=== PATIENT | male | born 1975 | race Caucasian/White ===

== ENCOUNTER → 2017-11-10 10:03 | Outpatient (CLI) | payer BC, SELFPAY ==
--- NOTE | 2017-11-10 10:08 | XR_ITS ---
XR chest 2V HISTORY: Chest pain and leg swelling ITS.REASON: CHF ORDERING PHYSICIAN: Adriana Neil PATIENT AGE: 41 years COMPARISON: None FINDINGS: The cardiomediastinal silhouette and pulmonary vascularity are within normal limits. The lungs are clear without infiltrates, suspicious nodules, or pleural effusions. No acute bony abnormalities. IMPRESSION: Negative chest, no acute finding No radiographic evidence of congestive heart failure
== END ==
PROVIDERS: PCP Family Medicine; Visit Provider Nurse Practitioner Family
DX: I50.9 Heart failure, unspecified (principal)
CPT/HCPCS: 71046; 93005

== ENCOUNTER → 2017-11-11 08:03 | Outpatient (CLI) | payer BC, SELFPAY ==
[2017-11-11 09:12] LABS: Alanine Aminotransferase 38 U/L (12-78); Albumin Level 3.5 gm/dL (3.4-5.0); Albumin/Globulin Ratio 1.1 (1.1-1.8); Alkaline Phosphatase 56 U/L (46-116); Anion Gap 11.6 mEq/L (5-15); Aspartate Amino Transferase 16 U/L (15-37); Bilirubin,Total 0.3 mg/dL (0.2-1.0); Blood Urea Nitrogen 16 mg/dL (7-18); Calcium 8.9 mg/dL (8.5-10.1); Carbon Dioxide 30 mmol/L (21.0-32.0); Chloride 105 mmol/L (98-107); Chol/HDL Ratio 5.3 (1-3.5); Cholesterol 226 mg/dL (140-200); Creatinine,Serum 0.96 mg/dL (0.70-1.30); Estimated Glomerular Filt Rate 86 ml/min (>60); GFR (African American) 104 ML/MIN (>60); Globulin 3.2 gm/dl (1.3-3.2); Glucose 104 mg/dL (74-106); HDL Cholesterol 43 mg/dL (27-67); LDL Cholesterol 160 mg/dL (0-130); Potassium 4.6 mmoL/L (3.5-5.1); Sodium 142 mmol/L (136-145); Total Protein,Serum 6.7 gm/dL (6.4-8.2); Triglycerides 113 mg/dL (30-200); VLDL Cholesterol 23 mg/dL (0-40)
[2017-11-11 12:40] LABS: Hemoglobin A1C 5.7 % (0.0-7.0)
== END ==
PROVIDERS: Visit Provider Nurse Practitioner Family
DX: I50.9 Heart failure, unspecified (principal); Z13.220 Encounter for screening for lipoid disorders; Z13.1 Encounter for screening for diabetes mellitus
CPT/HCPCS: 36415; 80053; 80061; 83036

== ENCOUNTER → 2020-03-29 12:21 | Outpatient (CLI) | payer BC, SELFPAY ==
[2020-03-29 13:31] LABS: Basophils # 0.1 K/mm3 (0-0.2); Basophils % 0.8 % (0.1-2.0); Eosinophils # 0.2 K/mm3 (0.0-0.4); Eosinophils % 2.9 % (0.1-12.0); Hemoglobin 15.7 g/dL (14.1-18.0); Lymphocytes # 2.8 K/mm3 (0.7-4.5); Mean Corpuscular HGB Conc 34.1 g/dL (31.8-35.4); Mean Corpuscular Hemoglobin 30.7 pg (27.0-31.2); Mean Corpuscular Volume 90.2 fl (80-94); Mean Platelet Volume 8.1 fl (7.4-10.4); Monocytes # 0.5 K/mm3 (0.1-1.0); Monocytes % 6.5 % (1.7-9.3); Neutrophils # 3.8 K/mm3 (1.8-7.8); Neutrophils % 51.9 % (37.0-80.0); Platelet Count 232 K/mm3 (142-424); White Blood Count 7.3 K/mm3 (4.8-10.8)
[2020-03-30 14:33] LABS: Covid-19 Nasal PCR Sendout Lex NOT DETECTED
== END ==
PROVIDERS: PCP Family Medicine; Visit Provider Family Medicine
DX: Z03.818 Encounter for observation for suspected exposure to other biological agents ruled out (principal)
CPT/HCPCS: 36415; 85025; U0004

== ENCOUNTER → 2021-02-03 11:21 | Outpatient (CLI) | payer BC, SELFPAY ==
[2021-02-03 12:10] LABS: Adenovirus,PCR Not Detected (NotDetected); Bordetella Pertussis Not Detected (NotDetected); Chlamydophila Pneumoniae, PCR Not Detected (NotDetected); Coronavirus 229E Not Detected (NotDetected); Coronavirus NL63 Not Detected (NotDetected); Coronavirus OC43 Not Detected (NotDetected); Coronovirus HKU1,PCR Not Detected (NotDetected); Human Metapneumovirus Not Detected (NotDetected); Influenza A, PCR Not Detected (NotDetected); Influenza AH1, 2009 Not Detected (NotDetected); Influenza AH1, PCR Not Detected (NotDetected); Influenza AH3,PCR Not Detected (NotDetected); Influenza B, PCR Not Detected (NotDetected); Mycoplasma Pneumoniae, PCR Not Detected (NotDetected); Parainfluenza 1, PCR Not Detected (NotDetected); Parainfluenza 2, PCR Not Detected (NotDetected); Parainfluenza 3, PCR Not Detected (NotDetected); Parainfluenza 4, PCR Not Detected (NotDetected); Respiratory Syncytial Virus Not Detected (NotDetected); Rhinovirus/Enterovirus Not Detected (NotDetected)
[2021-02-03 12:23] LABS: Basophils % 0.9 % (0.1-2.0); Eosinophils # 0.1 K/mm3 (0.0-0.4); Eosinophils % 2.8 % (0.1-12.0); Hematocrit 43.9 % (42.0-52.0); Hemoglobin 14.4 g/dL (14.1-18.0); Lymphocytes # 1.4 K/mm3 (0.7-4.5); Lymphocytes % 29.9 % (10-50); Mean Corpuscular HGB Conc 32.9 g/dL (31.8-35.4); Mean Corpuscular Volume 91.1 fl (80-94); Mean Platelet Volume 7.8 fl (7.4-10.4); Monocytes # 0.5 K/mm3 (0.1-1.0); Monocytes % 11.1 % (1.7-9.3); Neutrophils # 2.6 K/mm3 (1.8-7.8); Neutrophils % 55.2 % (37.0-80.0); Platelet Count 200 K/mm3 (142-424); Red Blood Count 4.82 M/mm3 (4.60-6.20); Red Cell Distribution Width 12.8 % (11.5-17.5); White Blood Count 4.7 K/mm3 (4.8-10.8)
[2021-02-03 14:02] LABS: Coronavirus 19, PCR Detected (NotDetected)
== END ==
PROVIDERS: PCP Nurse Practitioner Family; Visit Provider Nurse Practitioner Family
DX: Z20.822 Contact with and (suspected) exposure to COVID-19 (principal); U07.1 COVID-19
CPT/HCPCS: 36415; 85025; 87581; 87632; 87798; C9803; U0003; U0005

== ENCOUNTER 2022-01-29 16:50 | Observation (INO) | payer BC, SELFPAY ==
[2022-01-29] VITALS (9 sets, daily range): BP systolic 110–138; BP diastolic 72–87; PULSE 50–74; RESP 16–18; TEMP 36.6–36.7; O2SAT 97–99; BMI 39.9; BMI 39.7
--- NOTE | 2022-01-29 16:50 | ECG_ITS ---
APPROVED REPORT Exam: Resting ECG HR:69 bpm ECG Measurements Heart Rate 69 AXES IA 149 P 21 QRSd 91 QRS 24 QT 383 T 17 QTc 402 Conclusion SINUS RHYTHM NORMAL ECG UNCONFIRMED REPORT Electronically signed by : Jamie Mckeon MD 01/31/2022 09:54:30
--- NOTE | 2022-01-29 16:54 | XR_ITS ---
PROCEDURE INFORMATION: Exam: XR Chest Exam date and time: 01/29/2022 5:08 PM Age: 46 years old Clinical indication: Pain; Chest pressure; Additional info: Chest pain TECHNIQUE: Imaging protocol: Radiologic exam of the chest. Views: 1 view. COMPARISON: CR CXR2V XR chest 2V 11/10/2017 10:09 AM FINDINGS: Lungs: Unremarkable. No consolidation. Pleural spaces: Unremarkable. No pleural effusion. No pneumothorax. Heart/Mediastinum: Unremarkable. No cardiomegaly. Bones/joints: Unremarkable. IMPRESSION: No acute findings.
--- NOTE | 2022-01-29 17:06 | HMH.EDGENADL ---
Discharge Plan Disposition Patient Disposition: Admitted as Observation Condition: Good Clinical Impressions Clinical Impression: Pulmonary emboli Discharge ED Provider: Joey Bonilla General Adult HPI General Chief complaint: Chest Pain Stated complaint: Chest Pain Time Seen by Provider: 01/29/22 17:19 History of Present Illness HPI narrative: Patient states that he was walking to get his mail today when he got a sudden sharp stabbing pain in his right shoulder blade whenever he takes a deep breath. He feels short of breath. States his left arm also felt a little bit funny. No recent illness, no recent cough, no hemoptysis, no fever. No leg pain. He has chronic swelling of his legs which is unchanged. No recent hospitalizations, surgery, travel. He has no known cardiac disease or pulmonary disease. He is a former smoker. States that a few days ago he had a brief episode of chest tightness lasting only a few minutes. Related Data Home Medications Medication Instructions Recorded Confirmed No Known Home Medications 01/29/22 01/29/22 Allergies Allergy/AdvReac Type Severity Reaction Status Date / Time No Known Allergies Allergy Verified 08/28/18 20:00 [facility] Social History Smoking Status: Never smoker alcohol intake: never current occupational status: other Travel in the last 8 weeks: None ROS Obtained: Yes Systems reviewed as appropriate & no additional complaints except as documented Constitutional Constitutional: Reports system reviewed and no additional complaints, except as documented, Denies fever(s), Denies headache(s) and Denies weakness ENT Ears, Nose, Mouth, and Throat: Denies headache(s), Denies nasal discharge and Denies sore throat Cardiovascular Cardiovascular: Reports chest pain and Reports leg edema (Chronic) Respiratory Respiratory: Reports shortness of breath, Denies cough, Denies hemoptysis and Reports pain with breathing Gastrointestinal Gastrointestingal: Denies abdominal pain, constipation, diarrhea or vomiting Genitourinary Male Genitourinary: Denies difficulty urinating and Denies flank pain Musculoskeletal Musculoskeletal: Denies numbness Neurologic Neurologic: Denies headache(s), Denies numbness and Denies weakness Physical Exam General General appearance: alert and in no apparent distress Head Head exam: atraumatic and normocephalic Eye Eye exam: Present normal appearance and EOMI ENT ENT exam: Present mucous membranes moist Neck Neck exam: Present normal inspection and trachea midline Chest Chest inspection: Present normal inspection and symmetric chest wall rise Respiratory Respiratory exam: Present normal lung sounds bilaterally; Absent respiratory distress Cardiovascular Cardiovascular exam: Present regular rate, normal rhythm and normal heart sounds Abdominal Exam Abdominal exam: Present soft and normal bowel sounds; Absent distention, tenderness, guarding, rebound or rigidity Extremities Exam Extremities exam: Absent edema or calf tenderness Neurological Exam Neurological exam: Present alert and oriented X3 Psychiatric Psychiatric exam: Present normal affect and normal mood Skin Skin exam: Present warm and dry Medical Decision Making Elver Inquiry Pt receiving controlled substance: No Vital Signs: 01/29/22 16:52 01/29/22 17:00 01/29/22 17:31 Temperature 98.1 F Temperature Source Oral Pulse Rate 73 62 Pulse Rate [Radial] 74 Respiratory Rate 16 18 16 Blood Pressure 110/82 116/73 Blood Pressure [Right Arm] 122/85 Blood Pressure Mean 91 81 Blood Pressure Mean [Right Arm] 97 Blood Pressure Position [Right Arm] Sitting 02 Sat by Pulse Oximetry 98 97 98 Oxygen Delivery Method Room Air 01/29/22 18:31 01/29/22 19:24 01/29/22 20:01 Temperature Temperature Source Pulse Rate 67 71 60 Pulse Rate [Radial] Respiratory Rate 18 18 17 Blood Pressure 118/72 131/87 138/79 Blood Pressure [Right Arm] Bloo
--- NOTE | 2022-01-29 17:26 | CT_ITS ---
PROCEDURE INFORMATION: Exam: CTA Chest With Contrast Exam date and time: 01/29/2022 5:55 PM Age: 46 years old Clinical indication: Pain; Right-sided; Additional info: Pleuritic cp right side with inspiration. TECHNIQUE: Imaging protocol: Computed tomographic angiography of the chest with contrast. 3D rendering (Not supervised by radiologist): MIP and/or 3D reconstructed images were created by the technologist. Radiation optimization: All CT scans at this facility use at least one of these dose optimization techniques: automated exposure control; mA and/or kV adjustment per patient size (includes targeted exams where dose is matched to clinical indication); or iterative reconstruction. Contrast material: ISOVUE; Contrast volume: 70 ml; Contrast route: INTRAVENOUS (IV); COMPARISON: CR XR CHEST PORTABLE 01/29/2022 5:08 PM FINDINGS: Pulmonary arteries: A filling defect is present within the pulmonary artery to the right lower lobe (series 1001, image 51) consistent with pulmonary embolism. A filling defect is also present within the pulmonary artery to the left lower lobe (series 1001, image 54). Bilateral pulmonary emboli. Aorta: No evidence of aortic dissection. Lungs: Atelectatic changes noted within both lung bases. No focal pneumonia or pneumothorax. Pleural spaces: There are no pleural effusions present. Heart: No evidence of right heart strain. Lymph nodes: Unremarkable. No enlarged lymph nodes. Bones/joints: The thoracic spine demonstrates mild degenerative changes at multiple levels. Soft tissues: Unremarkable. IMPRESSION: 1. Bilateral pulmonary emboli. 2. No evidence of right heart strain. 3. No evidence of aortic dissection. 4. Atelectatic changes noted within both lung bases. 5. No focal pneumonia or pneumothorax.
[2022-01-29 17:38] LABS: Chloride 106 mmol/L (98-107); Sodium 140 mmol/L (136-145)
--- NOTE | 2022-01-29 17:39 | PC.NURSE ---
chris CR checked on pt no needs
[2022-01-29 17:41] LABS: Blood Urea Nitrogen 15 mg/dl (9-20); Calcium 8.7 mg/dl (8.4-10.2); Carbon Dioxide 27 mmol/L (22.0-30.0); Creatinine Clearance Estimated 211 mL/min (50-200); Estimated Glomerular Filt Rate 91 ml/min (>60); GFR (African American) 110 ML/MIN (>60); Glucose 85 mg/dl (74-100)
--- NOTE | 2022-01-29 17:41 | PC.NURSE ---
rounded on pt, pt family at BS, pt resting in bed, states no needs at this time. call light hooked on bedrail in reach of pt. will continue to monitor
[2022-01-29 17:47] LABS: Basophils # 0.2 K/mm3 (0-0.2); Basophils % 1.7 % (0.1-2.0); Eosinophils # 0.2 K/mm3 (0.0-0.4); Eosinophils % 2.4 % (0.1-12.0); Hematocrit 45.1 % (42.0-52.0); Hemoglobin 14.7 g/dL (14.1-18.0); Lymphocytes # 2.9 K/mm3 (0.7-4.5); Lymphocytes % 30.9 % (10-50); Mean Corpuscular HGB Conc 32.7 g/dL (31.8-35.4); Mean Corpuscular Hemoglobin 29.6 pg (27.0-31.2); Mean Corpuscular Volume 90.5 fl (80-94); Mean Platelet Volume 8.1 fl (7.4-10.4); Monocytes # 0.7 K/mm3 (0.1-1.0); Monocytes % 7.7 % (1.7-9.3); Neutrophils # 5.3 K/mm3 (1.8-7.8); Neutrophils % 57.4 % (37.0-80.0); Platelet Count 257 K/mm3 (142-424); Red Blood Count 4.98 M/mm3 (4.60-6.20); Red Cell Distribution Width 13.2 % (11.5-17.5); White Blood Count 9.2 K/mm3 (4.8-10.8)
[2022-01-29 17:59] LABS: Troponin I < 0.01 ng/ml (0.00-0.034)
--- NOTE | 2022-01-29 18:19 | PC.NURSE ---
dr nirmala valerio
--- NOTE | 2022-01-29 19:05 | PC.NURSE ---
notified lab of new orders on pt.
[2022-01-29 19:29] LABS: Coronavirus 19, PCR Not Detected (NotDetected); Influenza A, PCR Not Detected (NotDetected); Influenza B, PCR Not Detected (NotDetected)
--- NOTE | 2022-01-29 19:30 | PC.NURSE ---
ER noé is out of stock of single dose of ordered 15mg xarelto. [facility] be [facility] or delivered to ER.
[2022-01-29 20:30] LABS: INR 0.97 (0.9-1.1); Prothrombin Time 10.5 seconds (10.1-12.5)
--- NOTE | 2022-01-29 20:40 | PC.NURSE ---
Spoke with regarding xarelto order. Order set indicates xarelto 15mg po is to begin at 0700. requests 15mg po xarelto to be given stat. Order entered.
--- NOTE | 2022-01-29 20:43 | PC.NURSE ---
Called [facility] to again request 15mg xarelto be sent to ER.
--- NOTE | 2022-01-29 21:06 | PC.NURSE ---
PT ARRIVED TO FLOOR VIA W/C @ 1558
[2022-01-30] VITALS: BP 146/73; PULSE 60; PULSE 68; RESP 16; TEMP 36.7; O2SAT 100
[2022-01-30 04:00] VITALS: BP 104/58; PULSE 60; PULSE 62; RESP 16; TEMP 36.9; O2SAT 100
--- NOTE | 2022-01-30 05:05 | PC.NURSE ---
PT HAS RESTED INTERMITTENTLY SINCE ARRIVING TO THE FLOOR. REMAINS ALERT AND ORIENTED X4. TOLERATING ROOM AIR WELL. HAS NOT C/O CHEST PAIN OR SHORTNESS OF BREATH SO FAR THIS SHIFT. PT IS AMBULATING TO BATHROOM INDEPENDENTLY. CALL NARAYAN WITHIN REACH. VSS.
--- NOTE | 2022-01-30 07:00 | CA_ITS ---
FINAL REPORT CLINICAL HISTORY: pulmonary emboli bilateral, sob FINDINGS: Color Doppler, duplex Doppler and compression sonography of the bilateral lower extremities was performed. There is no evidence of deep venous thrombosis from the level of the groin to the calf. The deep veins are patent and compressible. IMPRESSION: No evidence of deep venous thrombosis bilateral lower extremities. Reviewed, Interpreted and Dictated by Dominick Gasca III, MD Transcribed by Guerrero Wells Authenticated and [facility]
--- NOTE | 2022-01-30 07:29 | P.CONPHA_ITS ---
[facility] Pharmacy VTE Monitoring Patient Demographics Admission date: 01/29/22 Report Date: 01/30/22 Time: 07:29 Patient Allergies No Known Allergies Allergy (Verified 08/28/18 20:00) Height: 1.91 m Weight: 145.15 kg Current Active Problems (Updated 01/29/22 @ 21:28 by Jennifer Carter RN) Pulmonary emboli (Acute) VTE Risk Labs: VTE Related Lab Results Hgb 14.7 g/dL (14.1-18.0) 01/29/22 16:58 Hct 45.1 % (42.0-52.0) 01/29/22 16:58 Plt Count 257 K/mm3 (142-424) 01/29/22 16:58 PT 10.5 seconds (10.1-12.5) 01/29/22 19:32 INR 0.97 (0.9-1.1) 01/29/22 19:32 BUN 15 mg/dl (9-20) 01/29/22 16:58 Creatinine 0.90 mg/dl (0.66-1.25) 01/29/22 16:58 Estimated Creat Clear 211 mL/min (50-200) 01/29/22 16:58 Was VTE Risk Assessment Performed: No VTE Score: 2 VTE Risk Level: Very Low Risk Prophylaxis VTE Prophylaxis Ordered?: Yes Types of VTE Prophylaxis: TEDS Knee High and Pharmacological Location of Applied Device: Bilateral Lower Extremeties Pharmacologic Type: Other (XARELTO)
[2022-01-30 08:00] VITALS: BP 142/96; PULSE 70; PULSE 74; RESP 22; TEMP 36.3; O2SAT 97
--- NOTE | 2022-01-30 09:09 | EXP.HPDC ---
General Admission date:: 01/29/22 Discharge date: 01/30/22 *Admission Date: 01/29/22 *Chief complaint: chest pain, SOA *History of present illness: Patient states that he was walking to get his mail today when he got a sudden sharp stabbing pain in his right shoulder blade whenever he takes a deep breath.? He feels short of breath.? States his left arm also felt a little bit funny.? No recent illness, no recent cough, no hemoptysis, no fever.? No leg pain.? He has chronic swelling of his legs which is unchanged.? No recent hospitalizations, surgery, travel.? He has no known cardiac disease or pulmonary disease.? He is a former smoker. States that a few days ago he had a brief episode of chest tightness lasting only a few minutes. (above as per ER physician) He was worked up in the ER and CTA of chest was remarkable for bilateral lower lobe pulmonary emboli with no right heart strain. He was initiated on Xarelto for treatment and admitted for observation. [facility] Medical History (Updated 01/30/22 @ 11:59 by TARIK Paul) Cyst History of kidney stones Hyperlipidemia, mixed Surgical History (Updated 01/30/22 @ 11:56 by TARIK Paul) H/O removal of cyst History of skin graft Family History Family history of DVT Family history of stroke Family history of hypertension Family history of hyperlipidemia Social History Smoking Status: Former smoker alcohol intake: current current occupational status: employed and other Travel in the last 8 weeks: None Review of Systems Constitutional Constitutional: Denies fatigue, Denies headache(s) and Denies weakness Eyes Eyes: Denies blurry vision and Denies diplopia ENT Ears, Nose, Mouth, and Throat: Denies headache(s), Denies nasal congestion and Denies sore throat *Cardiovascular Cardiovascular: Reports chest pain and Reports dyspnea *Respiratory Respiratory: Denies cough and Reports dyspnea *Gastrointestinal Gastrointestinal: Denies loose stools, Denies nausea and Denies vomiting *Genitourinary Genitourinary: Denies difficulty urinating and Denies dysuria *Musculoskeletal Musculoskeletal: Denies arthralgias *Neurologic Neurologic: Denies headache(s) and Denies weakness Endocrine Endocrine: Denies fatigue Exam Data for Last 24 hours Vital signs and Labs for Last 24 Hours: Temp Pulse Resp BP Pulse Ox 98.4 F 62 16 104/58 L 100 01/30/22 04:00 01/30/22 04:00 01/30/22 04:00 01/30/22 04:00 01/30/22 04:00 Laboratory Results - last 24 hr 01/29/22 16:58: WBC 9.2, RBC 4.98, Hgb 14.7, Hct 45.1, MCV 90.5, MCH 29.6, MCHC 32.7, RDW 13.2, Plt Count 257, MPV 8.1, Neut % (Auto) 57.4, Lymph % (Auto) 30.9, [place] % (Auto) 7.7, Eos % (Auto) 2.4, Baso % (Auto) 1.7, Neut # (Auto) 5.3, Lymph # (Auto) 2.9, [place] # (Auto) 0.7, Eos # (Auto) 0.2, Baso # (Auto) 0.2 01/29/22 16:58: Sodium 140, Potassium 4.0, Chloride 106, Carbon Dioxide 27, Anion Gap 11.0, BUN 15, Creatinine 0.90, Estimated Creat Clear 211, Estimated GFR 91, Est GFR ( Amer) 110, Glucose 85, Calcium 8.7, Troponin I < 0.01 01/29/22 19:25: SARS-CoV-2 (PCR) Not detected, Influenza A Untype (PCR) Not detected, Influenza Type B (PCR) Not detected 01/29/22 19:32: PT 10.5, INR 0.97 I & O for Last 24 hours: Intake & Output 01/27/22 01/28/22 01/29/22 01/30/22 11:59 11:59 11:59 11:59 Output Total 0 / 0 Balance 0 / 0 Weight 320 lb 0.015 oz Constitutional Constitutional: no acute distress *Routine HEENT Exam Head: Present normocephalic and atraumatic Eye: Present EOMI and PERRL ENT: Present mucous membranes moist *Routine Neck Exam Neck: Present supple and full ROM *Routine Respiratory Exam Respiratory: Present CTA bilaterally *Routine Cardiovascular Exam Cardiovascular: Present RRR *Routine Abdominal Exam Abdominal: Present soft and normoactive bowel sounds; Absent tenderness *Rout
[2022-01-31 10:12] LABS: Homocyst(e)ine 10.2 umol/L (0.0-14.5)
[2022-02-02 17:09] LABS: Anti-Thrombin III Antigen 96 % (72-124); Antithrombin Activity 90 % (75-135); Factor VIII Activity 61 % (56-140); Protein C Functional 140 % (73-180); Protein S, Free 122 % (61-136); Protein S, Total 108 % (60-150); Protein S-Functional 130 % (63-140)
--- NOTE | 2022-02-03 13:35 | CARE MANAGER ---
Contacted patient related to discharge from hospital. States he received his Xarelto and is aware of follow up appointment. Denies questions or concerns. SAMMIE Castellon
[2022-02-05 15:36] LABS: Protein C Antigen 151 % (60-150)
== END 2022-01-30 11:20 | disposition home or self-care (01) ==
LOC: ER 19:13 → 2ND 20:55
PROVIDERS: Admitting Provider Family Medicine; Emergency Provider Emergency Medicine; PCP Family Medicine; Visit Provider Family Medicine
DX: Z87.891 Personal history of nicotine dependence; Z82.49 Family history of ischemic heart disease and other diseases of the circulatory system; I26.94 Multiple subsegmental thrombotic pulmonary emboli without acute cor pulmonale; Z20.822 Contact with and (suspected) exposure to COVID-19
CPT/HCPCS: 71045; 71275; 80048; 81241; 83090; 84484; 85025; 85240; 85300; 85301; 85302; 85305; 85306; 85610; 86148; 93005; 93970; 99285; C9803; G0378; Q9967; U0003; U0005

== ENCOUNTER → 2022-06-29 14:57 | Outpatient (CLI) | payer BC, SELFPAY ==
[2022-06-29 15:38] LABS: Basophils # 0.2 K/mm3 (0-0.2); Basophils % 2.2 % (0.1-2.0); Eosinophils # 0.2 K/mm3 (0.0-0.4); Eosinophils % 2.5 % (0.1-12.0); Hematocrit 46.3 % (42.0-52.0); Hemoglobin 15.2 g/dL (14.1-18.0); Lymphocytes # 3.1 K/mm3 (0.7-4.5); Mean Corpuscular HGB Conc 32.9 g/dL (31.8-35.4); Mean Corpuscular Hemoglobin 29.2 pg (27.0-31.2); Mean Corpuscular Volume 88.7 fl (80-94); Mean Platelet Volume 8.2 fl (7.4-10.4); Monocytes # 0.6 K/mm3 (0.1-1.0); Monocytes % 6.3 % (1.7-9.3); Neutrophils # 5.5 K/mm3 (1.8-7.8); Neutrophils % 57.1 % (37.0-80.0); Platelet Count 250 K/mm3 (142-424); Red Blood Count 5.22 M/mm3 (4.60-6.20); White Blood Count 9.6 K/mm3 (4.8-10.8)
[2022-06-29 15:54] LABS: Alanine Aminotransferase 45 U/L (12-78); Albumin Level 4.6 g/dl (3.5-5.0); Alkaline Phosphatase 61 U/L (38-126); Aspartate Amino Transferase 33 U/L (17-59); Bilirubin,Direct 0.2 mg/dl (0.0-0.4); Bilirubin,Indirect 0.3 mg/dL (0.0-0.9); Bilirubin,Total 0.5 mg/dl (0.2-1.3); Bilirubin,Unconjugated 0.3 mg/dL (0.0-1.1); Blood Urea Nitrogen 14 mg/dl (9-20); Calcium 9.2 mg/dl (8.4-10.2); Carbon Dioxide 29 mmol/L (22.0-30.0); Chloride 104 mmol/L (98-107); Chol/HDL Ratio 4.2 (1-3.5); Cholesterol 181 mg/dl (140-200); Estimated Glomerular Filt Rate 91 ml/min (>60); GFR (African American) 110 ML/MIN (>60); Glucose 83 mg/dl (74-100); HDL Cholesterol 43 mg/dl (40-60); Sodium 139 mmol/L (136-145); Total Protein,Serum 7.2 g/dl (6.3-8.2); Triglycerides 166 mg/dl (30-150); VLDL Cholesterol 33 mg/dL (0-40)
[2022-06-29 16:04] LABS: Direct LDL Cholesterol 106.44 mg/dL (100-129)
[2022-06-29 16:10] LABS: Free T4 (Free Thyroxine) 0.99 ng/dl (0.78-2.19)
[2022-06-29 16:25] LABS: Thyroid Stimulating Hormone 2.02 uIU/mL (0.465-4.68)
[2022-06-29 16:38] LABS: Troponin I < 0.01 ng/ml (0.00-0.034)
== END ==
PROVIDERS: PCP Family Medicine; Visit Provider Nurse Practitioner Family
DX: I26.99 Other pulmonary embolism without acute cor pulmonale (principal); M25.519 Pain in unspecified shoulder; E78.2 Mixed hyperlipidemia; R53.83 Other fatigue; R94.31 Abnormal electrocardiogram [ECG] [EKG]
CPT/HCPCS: 36415; 80048; 80061; 80076; 84439; 84443; 84484; 85025

== ENCOUNTER → 2022-07-15 06:12 | Outpatient (CLI) | payer BC, SELFPAY ==
--- NOTE | 2022-07-15 06:15 | CA_ITS ---
APPROVED REPORT EXAM: Comprehensive 2D, Doppler, and color-flow Echocardiogram Hosiery Mater: Arely Aragon, RCS, RVS Ht: 6 ft 3 in Wt: 324lbs BSA: 2.69 BP: 135/90 mmHg Indications: fatigur, obesity, HLD, +family hx-HD, Hx-covid, Ex-smoker Echo Enhancing Agent Comments: Poor acoustics due to large body habitus/chest circumference 2D Dimensions Aortic Root 3.56 cm LA Volume 71.50 mL Left Atrium 3.77 cm LA Volume Index 26.598444 mL/m2 (M/F) 16-34 LVOT 2.09 cm (M/F) 1.5-2.5 M-Mode Dimensions RVDd 3.61 cm (0.9-2.6) LA Diam 4.24 cm (1.9-4.0) LVDd 5.24 cm (3.5-5.7) Ao Diam 3.57 cm (2.0-3.7) LVDs 3.40 cm (3.5-5.7) IVSd 0.84 cm (0.6-1.1) PWd 0.97 cm (0.6-1.1) EF (Teich) 61.50% EPSs 0.31 cm FS 33.20% EDV (Teich) 123.20 mL TAPSE 2.65 (<1.7) ESV (Teich) 47.40 mL LV Diastology E Decel Time 183.00 (160-240 msec) E/A Ratio 2.02 MED E' 9.10 (< 7 cm/sec) MED A' 10.50 cm/s E'/MED E' Ratio 9.48 (>14) LAT E' 11.00 (<10 cm/sec) LAT A' 11.30 cm/s E/LAT E' Ratio 7.85 (>14) Aortic Valve LVOT Max 102.00 (70-110 cm/s) LVOT VTI 22.13 cm AoV Peak [place]. 117.00 (50-130 cm/s) AO Peak GR. 5.50 mmHg AO Mean GR. 2.70 (<5 mmHg) AO VTI 22.50 (18-25 cm) CAM[place]ON (VTI) 3.37 (2.5-4.5 cm2) Mitral Valve MV A Velocity 43.00 (40-130 cm/s) E/A Ratio 2.02 MV Decel. Time 183.00 (160-240 ms) MV PHT 53.00 ms Pulmonary Valve PV Peak Velocity 85.00 (50-150 cm/s) Tricuspid Valve TR P. Velocity 174.00 cm/s RAP Estimate 10.00 mmHg RVSP 22.20 mmHg Left Ventricle Technically difficult study. Left atrium is mildly enlarged, ventricular normal size, estimated ejection fraction 55% with no regional wall motion abnormality, diastolic parameters are within normal range. Right Ventricle Right atrium and right ventricular mildly enlarged with normal contractility. Aortic Valve Aortic valve is grossly normal there is no aortic stenosis aortic insufficiency. Mitral Valve Mitral valve is grossly normal, there is no significant mitral regurgitation. Tricuspid Valve Tricuspid valve grossly normal, there is no significant tricuspid regurgitation. Pulmonic Valve Pulmonic valve is poorly visualized. Great Vessels Aortic root is normal size. Inferior vena cava is poorly visualized. Pericardium No significant pericardial effusion noted. Conclusion 1. Technically difficult study because of the patient factors and poor acoustic windows. Normal left ventricular size, estimated ejection fraction 55% with no regional wall motion abnormality, diastolic parameters are within normal range. 2. Mildly enlarged right ventricle with normal contractility. 3. No significant pericardial effusion noted. 4. Inferior vena cava is poorly visualized. Electronically signed by : Royce Deleon MD 07/16/2022 06:44:04
--- NOTE | 2022-07-15 06:15 | NM_ITS ---
APPROVED REPORT Exam: Nuclear Stress Test Indication: HYPERLIPIDEMIA, FM HX., FATIGUE Patient Location: Outpatient Stress Tech: Katie Leger ME Tech:Kylee Keith JUSTACooper RT (R)(N)(M) Ht: 6 ft 3 in Wt: 330 lbs HR: 79 bpm BP: 129/85 mmHg BSA: 2.71 m2 TID: 1.37 BMI: 41.2 History: HYPERLIPIDEMIA, FM HX., FATIGUE Procedure: Patient exercised on José Miguel protocol 8:00 minutes and sec, resting heart rate 79 bpm, resting blood pressure 129/85 mmHg, with exercise maximum heart rate achived was 164 bpm which is 94 % of the maximum predicted heart rate and blood pressure was 165/80 mmHg. Test was stopped due to FATIGUE. Patient has Good exercise capacity, achieved 10.1 METs of workload on treadmill, the blood pressure response to exercise was Adequate. Electrocardiogram Resting electrocardiogram shows sinus rhythm, with exercise there is less than 1.[address] segment depression noted from the baseline EKG. The EKG portion of the exercise Myoview is negative for ischemia. Cardiac Stress and Resting SPECT Images: Cardiac Stress and Resting SPECT images were obtained using technetium 99m Myoview 30.4 mCi stress and 10.73 mCi at rest. Gated SPECT analysis of segmental wall motion and calculation of the ejection fraction also done. Prone images were also obtained. Cardiac stress and rest SPECT images show uniform myocardial activity without segmental perfusion abnormality, computer derived ejection fraction 57% with no regional wall motion abnormality, right ventricle is normal size and contractility. There is transient ischemic dilatation of the left ventricle noted which is likely artifactual. Conclusion: 1. The EKG portion of the exercise Myoview is negative for ischemia, patient has good exercise capacity achieved 10.1 METs of workload on treadmill, the blood pressure response to exercise was adequate, there was no exercise-induced chest discomfort. 2. No scintigraphic evidence of reversible ischemia seen, compared right ejection fraction is 57% with no regional wall motion abnormality, right ventricle is normal size and contractility. 3. Normal exercise sestamibi Myoview study. Electronically signed by : Royce Deleon MD 07/15/2022 16:44:43
--- NOTE | 2022-07-15 06:15 | CA_ITS ---
APPROVED REPORT Exam: Exercise Treadmill Technologist: Katie Pedraza, Ht: 6 ft 3 in Wt: 324 lbs BSA: 2.69 m2 HR: 74 bpm BP: 116/78 mmHg Medical History Medications: Lasix,,,,, XaRELTO,,,,, Lipitor,,,,, Stress Test Details Test: José Miguel HR Resting HR: 79 bpm Max Heart Rate (APMHR): 174.279113 bpm Max HR Achieved: 164 bpm Target HR (85% APMHR): 147.401417 bpm % of APMHR: 94.25 Recovery HR: 92 bpm BP Resting BP: 129/85 mmHg Max BP: 165/80 mmHg Recovery BP: 135.0/71.0 mmHg ECG Clinical Exercise duration: 08:00 min Highest Stage Achieved: III Exercise capacity: 10.1 METs Stress ECG Conclusion Exercised 8:00 on José Miguel Protocol Max HR: 162 % of PM: 93% Max BP: 165/80 METs: 10.1 Test stopped due to: SOA, Fatigue Symptoms: No CP. Arrhythmias/Ectopy: None ST-T Changes: Allowing for some motion artifact. the ST response to exercise is within normal. Conclusio: Normal GXT. Myoview images reported separately. Test Summary REST . . . . . . . Sitting REST . . . . . . . Standing REST 14:25 0.0 0.0 79 . 129/ 85 . . Stage 1 01:00 10.0 1.7 107 . . . . Stage 1 02:00 10.0 1.7 120 . . . . Stage 1 03:00 10.0 1.7 120 . . . . Stage 2 01:00 12.0 2.5 135 . 154/ 84 . . Stage 2 02:00 12.0 2.5 142 . 154/ 84 . . Stage 2 03:00 12.0 2.5 149 . 165/ 80 . . Stage 3 01:00 14.0 3.4 156 . . . . Stage 3 02:00 14.0 3.4 162 . . . Stop exercise at 08:00 RECOVERY 01:00 0.0 0.0 139 . . . . RECOVERY 02:00 0.0 0.0 108 . 143/ 77 . . RECOVERY 03:00 0.0 0.0 98 . 143/ 77 . . RECOVERY 04:00 0.0 0.0 92 . 140/ 76 . . RECOVERY 05:00 0.0 0.0 94 . 140/ 76 . . RECOVERY 05:23 0.0 0.0 91 . 135/ 71 . . Electronically signed by : Royce Deleon MD 07/15/2022 16:37:25
--- NOTE | 2022-07-15 08:16 | HMH.ITSHM ---
Current Home Medications as stated by this patient Osbaldo Perez or business process representative. []RIVAROXABAN FUROSEMIDE ATORVASTATIN
== END ==
LOC: RAD 06:15
PROVIDERS: PCP Family Medicine; Visit Provider Nurse Practitioner Family
DX: I26.99 Other pulmonary embolism without acute cor pulmonale (principal); E78.2 Mixed hyperlipidemia; M25.519 Pain in unspecified shoulder; R53.83 Other fatigue; R94.31 Abnormal electrocardiogram [ECG] [EKG]
CPT/HCPCS: 78452; 93017; 93306; A9502

== ENCOUNTER → 2022-09-03 15:11 | Outpatient (CLI) | payer BC, SELFPAY ==
--- NOTE | 2022-09-03 15:15 | CA_ITS ---
FINAL REPORT CLINICAL HISTORY: chronic Edema x 4years, Hx- pe FINDINGS: Color Doppler, duplex Doppler and compression sonography of the bilateral lower extremities was performed. There is no evidence of deep venous thrombosis from the level of the groin to the calf. The deep veins are patent and compressible. IMPRESSION: No evidence of deep venous thrombosis bilateral lower extremities. Reviewed, Interpreted and Dictated by Dominick Gasca III, MD Transcribed by Adriana Humphreys Authenticated and [facility]
[2022-09-03 15:37] LABS: Microscopic, Urine URINE MICROSCOPIC (MICROSCOPIC)
[2022-09-03 17:01] LABS: Appearance,Urine CLEAR (Clear); Bilirubin,Urine Negative (Negative); Blood, Urine Negative (Negative); Color,Urine YELLOW (Yellow); Glucose,Urine (UA) Negative (Negative); Ketones,Urine Negative (Negative); Leukocyte Esterase,Urine Negative (Negative); Nitrate,Urine Negative (Negative); Protein,Urine Negative (Negative); Specific Gravity, Urine 1.015 (1.005-1.030); Urobilinogen,Urine 0.2 EU/dl (0.2)
[2022-09-03 17:16] LABS: Total Protein,Urine Random < 5.0 mg/dL (0.0-12.0)
[2022-09-03 18:36] LABS: Bacteria,Urine Trace /lpf; RBC,Urine Occasional #/hpf (0-3); Squamous Epithelial Cell,Urine Occasional #/hpf (0-5); WBC,Urine Occasional #/hpf (0-3)
[2022-09-03 18:37] LABS: Amorphous Sediment,Urine Trace /lpf
== END ==
LOC: LAB 15:13
PROVIDERS: PCP Family Medicine; Visit Provider Internal Medicine Pulmonary Disease
DX: I26.99 Other pulmonary embolism without acute cor pulmonale (principal); R06.09 Other forms of dyspnea; R60.9 Edema, unspecified
CPT/HCPCS: 81001; 84155; 93970

== ENCOUNTER 2023-08-21 14:01 | Emergency (ER) | payer BC, SELFPAY ==
[2023-08-21 14:10] VITALS: BP 143/86; PULSE 72; RESP 24; TEMP 36.9; O2SAT 100; BMI 42.6
--- NOTE | 2023-08-21 14:10 | EXP.UTC ---
Discharge Plan Disposition Patient Disposition: Home, Self-Care Condition: Good Prescriptions Prescriptions: New azithromycin [Zithromax] 250 mg tablet 250 mg PO UD DOSE PK Qty: 6 0RF Rx Instructions: Take two (2) tablets today, then one (1) tablet days #2 thru #5 benzonatate 100 mg capsule 100 mg PO TIDP PRN (Reason: Cough) Qty: 30 0RF methylprednisolone 4 mg Tablets,Dose Pack 4 mg PO DIRECTED 6 Days Qty: 21 0RF Rx Instructions: Take 1 pack as directed for 6 days No Action Xarelto 20 mg tablet See Rx Instructions .ROUTE .COMPLEX Qty: 90 0RF Dose Instruction: TAKE 1 TABLET BY MOUTH ONCE DAILY MUST ADMINISTER WITH EVENING MEAL Rx Instructions: TAKE 1 TABLET BY MOUTH ONCE DAILY MUST ADMINISTER WITH EVENING MEAL atorvastatin [Lipitor] 10 mg tablet 10 mg PO HS Patient Comments: TAKE 1 TABLET BY MOUTH ONCE DAILY furosemide [Lasix] 20 mg tablet 20 mg PO NEEDED PRN (Reason: leg edema) Referrals Follow up/Referrals: Franklyn Ceron MD [Primary Care Provider] - See instructions Activity Restrictions/Add. Instructions Additional Instructions/Restrictions: Drink plenty of fluids. Take tylenol or ibuprofen for pain or fever. Take the medications as directed. Follow up with your regular doctor. GO TO THE ER FOR ANY WORSENING SYMPTOMS Clinical Impressions Clinical Impression: Acute bronchitis, Acute viral syndrome Instructions Patient Instructions: DI for Acute Bronchitis, DI for Viral Syndrome Discharge ED Provider: Manuelito Puente [facility] HPI General Stated complaint: headache, fever, sore throat, body aches, Time Seen by Provider: 08/21/23 14:10 History of Present Illness Provider Complaint: He states that for the past 2 days he has had body aches, chest congestion, productive cough, low grade fever and malaise. Related Data Home Medications Medication Instructions Recorded Confirmed atorvastatin 10 mg tablet (Lipitor) 10 mg PO HS Cholesterol 01/30/22 08/21/23 furosemide 20 mg tablet (Lasix) 20 mg PO NEEDED PRN leg edema 01/30/22 08/21/23 Previous Rx's Medication Instructions Recorded rivaroxaban 20 mg tablet (Xarelto) See Rx Instructions .Route 05/25/23 .COMPLEX #90 tabs azithromycin 250 mg tablet 250 mg PO UD DOSE PK #6 tabs 08/21/23 (Zithromax) benzonatate 100 mg capsule 100 mg PO TIDP PRN Cough #30 caps 08/21/23 methylprednisolone 4 mg tablets in 4 mg PO DIRECTED 6 days #21 tabs 08/21/23 a dose pack Allergies Allergy/AdvReac Type Severity Reaction Status Date / Time No Known Allergies Allergy Verified 08/21/23 14:28 [facility] Disclaimer: The information contained in this section may have been updated after the patient was seen, as this information can be updated by other users. Medical History (Updated 08/21/23 @ 14:46 by Manuelito Puente APRN) Shortness of Breath Bilateral pulmonary embolism Edema Family history of heart disease Fatigue Abnormal electrocardiogram [ECG] [EKG] Shoulder pain History of kidney stones Hyperlipidemia, mixed Cyst Wrist sprain Surgical History History of skin graft H/O removal of cyst Family History Other Family history of DVT Family history of hyperlipidemia Family history of hypertension Family history of stroke Social History Smoking Status: Former smoker alcohol intake: current current occupational status: employed and other Travel in the last 8 weeks: None ROS Obtained: Yes All systems reviewed & no additional complaints except as documented Constitutional Constitutional: Reports as per HPI, Reports chills, Reports fever(s) and Reports poor appetite Eyes Eyes: Reports system reviewed and no additional complaints, except as documented ENT Ears, Nose, Mouth, and Throat: Reports as per HPI Cardiovascular Cardiovascular: Reports system reviewed and no additional complaints, except as documented and Denies chest pain Respiratory Respiratory: Denies shortness of breath, Reports chest congestion, Reports cough, Denies stridor and Denies wheezing Gastrointestinal Gastrointestingal: Reports system reviewed and no additional complaints, except as documented and nausea; Denies abdominal pain, cramping, diarrhea or vomiting Musculoskeletal Musculoskeletal: Reports system reviewed and no additional complaints, except as documented and Denies arthralgias Integumentary/Breasts Skin/Breast: Reports system reviewed and no additional complaints, except as documented and Denies rash Neurologic Neurologic: Denies paresthesias Allergic/Immunologic Allergic/Immunologic: Denies wheezing Physical Exam General General appearance: alert and in no apparent distress Eye Eye exam: Present normal appearance, PERRL and EOMI ENT ENT exam: Present mucous membranes moist and normal external ear exam Expanded ENT Exam External ear exam: Present normal external inspection TM/Canal exam: Bilateral TM: erythema and bulging Nose exam: Absent sinus tenderness Nasal speculum exam: Bilateral: normal Mouth exam: Present normal external inspection; Absent drooling Teeth exam: Present normal inspection Throat exam: Present tonsillar erythema and tonsillomegaly Neck Neck exam: Present normal inspection, full ROM and trachea midline; Absent tenderness, lymphadenopathy or thyromegaly Chest Chest inspection: Present normal inspection and symmetric chest wall rise; Absent tenderness or rash Respiratory Respiratory exam: Present normal lung sounds bilaterally; Absent respiratory distress, wheezes, stridor or accessory muscle use Cardiovascular Cardiovascular exam: Present regular rate, normal rhythm and normal heart sounds Abdominal Exam Abdominal exam: Present soft; Absent distention, tenderness, guarding, rebound or rigidity Extremities Exam Extremities exam: Present normal inspection, full ROM and normal capillary refill; Absent tenderness or calf tenderness Back Exam Back exam: Present normal inspection and full ROM; Absent tenderness Neurological Exam Neurological exam: Present alert and oriented X3 Psychiatric Psychiatric exam: Present normal affect and normal mood Skin Skin exam: Present warm, dry, intact and normal color Lymphatic Lymphatic Findings: no adenopathy Medical Decision Making Medical Records Medical records reviewed: No I reviewed the patient's medical records. [place] Inquiry Pt receiving controlled substance: No Lab Data Lab results reviewed: Yes I reviewed the patient's lab results.
[2023-08-21 14:49] LABS: UTC Influenza A Antigen Negative (Negative); UTC Influenza B Antigen Negative (Negative); UTC Strep Screen (Rapid) Negative (Negative)
[2023-08-21 14:51] VITALS: BP 143/86; PULSE 72; RESP 24; TEMP 36.9; O2SAT 100
[2023-08-21 15:06] LABS: Coronavirus 19, PCR Not Detected (NotDetected); Influenza B, PCR Not Detected (NotDetected)
[2023-08-21 15:26] LABS: Influenza A, PCR Detected (NotDetected)
== END 2023-08-21 14:51 | disposition home or self-care (01) ==
PROVIDERS: Emergency Provider Nurse Practitioner Family; PCP Family Medicine
DX: J10.1 Influenza due to other identified influenza virus with other respiratory manifestations (principal); J20.8 Acute bronchitis due to other specified organisms; R05.9 Cough, unspecified; R50.9 Fever, unspecified; E78.5 Hyperlipidemia, unspecified; Z87.891 Personal history of nicotine dependence
CPT/HCPCS: 87636; 87804; 87880; 99204; 99212; G0463

== ENCOUNTER 2024-04-02 09:43 | Emergency (ER) | payer BC, SELFPAY ==
--- NOTE | 2024-04-02 10:12 | ED_ITS ---
Discharge Plan Disposition Patient Disposition: Home, Self-Care Condition: Good Prescriptions Prescriptions: New azithromycin [Zithromax] 250 mg tablet 250 mg PO UD DOSE PK Qty: 6 0RF Rx Instructions: Take two (2) tablets today, then one (1) tablet days #2 thru #5 benzonatate 100 mg capsule 100 mg PO TIDP PRN (Reason: Cough) Qty: 30 0RF No Action Xarelto 20 mg tablet See Rx Instructions .ROUTE .COMPLEX Qty: 30 0RF Dose Instruction: TAKE 1 TABLET BY MOUTH ONCE DAILY MUST ADMINISTER WITH EVENING MEAL Rx Instructions: TAKE 1 TABLET BY MOUTH ONCE DAILY MUST ADMINISTER WITH EVENING MEAL atorvastatin [Lipitor] 10 mg tablet 10 mg PO HS Patient Comments: TAKE 1 TABLET BY MOUTH ONCE DAILY Referrals Follow up/Referrals: Franklyn Ceron MD [Primary Care Provider] - See instructions Activity Restrictions/Add. Instructions Additional Instructions/Restrictions: Drink plenty of fluids. Take tylenol or for pain or fever. Take the medications as directed. Follow up with your regular doctor. GO TO THE ER FOR ANY WORSENING SYMPTOMS Clinical Impressions Clinical Impression: Pharyngitis, Acute viral syndrome Stand Alone Forms Stand Alone Forms: Work/School Release Instructions Patient Instructions: Sore Throat, DI for Pharyngitis/Tonsillopharyngitis -- Adult Print Language Print Language: Indonesian Discharge ED Provider: Manuelito Puente [facility] HPI General Stated complaint: headache ba congestion sore throat Time Seen by Provider: 04/02/24 10:12 Related Data Home Medications ?Medication ?Instructions ?Recorded ?Confirmed atorvastatin 10 mg tablet (Lipitor) 10 mg PO HS Cholesterol 01/30/22 04/02/24 Previous Rx's ?Medication ?Instructions ?Recorded rivaroxaban 20 mg tablet (Xarelto) See Rx Instructions .Route 09/13/23 .COMPLEX #30 tabs azithromycin 250 mg tablet 250 mg PO UD DOSE PK #6 tabs 04/02/24 (Zithromax) benzonatate 100 mg capsule 100 mg PO TIDP PRN Cough #30 caps 04/02/24 Allergies Allergy/AdvReac Type Severity Reaction Status Date / Time No Known Allergies Allergy Verified 08/21/23 14:28 [facility] Disclaimer: The information contained in this section may have been updated after the patient was seen, as this information can be updated by other users. Medical History (Updated 04/02/24 @ 11:00 by Manuelito Puente APRN) Shortness of Breath Bilateral pulmonary embolism Edema Family history of heart disease Fatigue Abnormal electrocardiogram [ECG] [EKG] Shoulder pain History of kidney stones Hyperlipidemia, mixed Cyst Wrist sprain Surgical History History of skin graft H/O removal of cyst Family History Other Family history of DVT Family history of hyperlipidemia Family history of hypertension Family history of stroke Social History Smoking Status: Former smoker alcohol intake: current current occupational status: employed and other ROS Obtained: Yes All systems reviewed & no additional complaints except as documented Constitutional Constitutional: Reports chills and Reports fever(s) Eyes Eyes: Denies eye discharge ENT Ears, Nose, Mouth, and Throat: Reports as per HPI Cardiovascular Cardiovascular: Denies chest pain Respiratory Respiratory: Denies chest congestion and Reports cough Gastrointestinal Gastrointestingal: Reports nausea; Denies abdominal pain, constipation, cramping, diarrhea or vomiting Musculoskeletal Musculoskeletal: Denies arthralgias Integumentary/Breasts Skin/Breast: Denies rash Neurologic Neurologic: Denies paresthesias Physical Exam General General appearance: alert and in no apparent distress Head Head exam: atraumatic, normocephalic and normal inspection Eye Eye exam: Present normal appearance, PERRL and EOMI ENT ENT exam: Present mucous membranes moist and normal external ear exam Expanded ENT Exam TM/Canal exam: Bilateral TM: erythema and bulging Nose exam: Absent sinus tenderness Mouth exam: Present normal external inspection; Absent drooling Teeth exam: Present normal inspection Throat exam: Present tonsillar erythema, tonsillomegaly and tonsillar exudate Neck Neck exam: Present normal inspection, full ROM and trachea midline; Absent tenderness, meningismus or lymphadenopathy Chest Chest inspection: Present normal inspection and symmetric chest wall rise; Absent tenderness Respiratory Respiratory exam: Present normal lung sounds bilaterally; Absent respiratory distress, wheezes, stridor or accessory muscle use Cardiovascular Cardiovascular exam: Present regular rate and normal rhythm; Absent systolic murmur or diastolic murmur Abdominal Exam Abdominal exam: Present soft and normal bowel sounds; Absent distention, tenderness, guarding, rebound or rigidity Extremities Exam Extremities exam: Present normal inspection and normal capillary refill; Absent calf tenderness Back Exam Back exam: Present normal inspection and full ROM; Absent tenderness, CVA tenderness (R) or CVA tenderness (L) Neurological Exam Neurological exam: Present alert, oriented X3 and CN II-XII intact Psychiatric Psychiatric exam: Present normal affect and normal mood Skin Skin exam: Present warm, dry, intact and normal color Medical Decision Making Medical Records Medical records reviewed: No I reviewed the patient's medical records. Screening: Per USPSTF and CDC recommendations, given the prevalence of disease in our region, it is our hospital?s policy to screen for HIV and viral Hepatitis for all patients aged 18 and over and those with ongoing risk factors. [place] Inquiry Pt receiving controlled substance: No
[2024-04-02 10:14] VITALS: BP 123/76; PULSE 96; RESP 18; TEMP 37.2; O2SAT 98; BMI 37.5
[2024-04-02 10:22] LABS: UTC Influenza A Antigen Negative (Negative)
[2024-04-02 10:23] LABS: UTC Influenza B Antigen Negative (Negative)
[2024-04-02 11:07] VITALS: BP 123/76; PULSE 96; RESP 18; TEMP 37.2
== END 2024-04-02 11:07 | disposition home or self-care (01) ==
PROVIDERS: Emergency Provider Nurse Practitioner Family; PCP Family Medicine
DX: J02.9 Acute pharyngitis, unspecified (principal); B34.9 Viral infection, unspecified; R50.9 Fever, unspecified; R05.9 Cough, unspecified; R11.0 Nausea
CPT/HCPCS: 87635; 87804; 99212; G0381

== ENCOUNTER 2024-11-14 12:53 | Outpatient (CLI) | payer BC, SELFPAY ==
--- NOTE | 2024-11-14 | CA_ITS ---
FINAL REPORT TECHNIQUE: Ultrasound images of the deep venous system were obtained from the left groin to the calf veins. CLINICAL HISTORY: Angry red hot left ankle and distal calf COMPARISON: None FINDINGS: The left lower extremity deep venous system is normally compressible. Normal flow is identified. Note is made of an ovoid hypoechoic left inguinal lymph node measuring 4.8 cm in length. IMPRESSION: No evidence of left lower extremity DVT. Left inguinal adenopathy is present as described. Reviewed, Interpreted and Dictated by Corby Cruz MD Transcribed by Gabriela Blas Authenticated and [facility]
--- OUTSIDE RECORDS SUMMARY | 2024-11-14 12:56 | XMS_ITS | Referral Summary ---
Author Organization [facility] ([place], [place], [place], [place]) Address [address] [place] [address] Care Team Providers Care Gang Head Saw Operator Name Role Phone Unavailable Primary Care Provider Unavailabl e Social History Tobacco Use Types Packs/Day Years Used Date Smoking Tobacco: Never Assessed Food Insecurity Answer Date Recorded Food run out past 12 months Not on file 07/15 Food did not last past 12 months Not on file 07/28/2023 Employment Answer Date Recorded Help finding and keeping a job Not on file 0 07/28/2023 Family and Community Support Answer [place] Recorded Help with Day to Day Activities Not on file 07/28/2023 Feeling Lonely or Isolated Not on file 07/27 Educational Attainment Answer Date Julio rded Speak language other than Luxembourgish at home Not on file 07/28/2023 Want help with school or training Not on file 07/28/2023 Substance Use Answer Date Recorded Used prescription meds for non-medical reasons N ot on file 07/28/2023 Used illegal drugs past 12 months Not on file 07/28/2023 Sex and Gender Information Value Date Recorded Sex Assigned at Not on file Legal Sex Male 12:15 PM CDT Gender Identity Not on file Sexual Orientation Not on file Plan of Treatment Not on file Insurance [facility]
--- OUTSIDE RECORDS SUMMARY | 2024-11-14 12:56 | XMS_ITS | Clinical Summary ---
Author Organization [employer] ([place], [place], [place], [place]) Address [address] [place] [id number] Care Team Providers Care Associate Teacher Name Role Phone Unavailable Primary Care Provider [...] Date Julio rded Speak language other than Pashto at home Not on file 07/28/2023 Want [...] Plan of Treatment Not on file Insurance [facility]
== END 2024-11-14 23:59 | disposition home or self-care (01) ==
LOC: RT 12:54
PROVIDERS: PCP Family Medicine; Visit Provider Family Medicine
DX: R59.0 Localized enlarged lymph nodes (principal); R60.0 Localized edema
CPT/HCPCS: 93971